=== PATIENT | male | born 1985 | race Caucasian/White ===

== ENCOUNTER 2024-05-01 08:27 | Emergency (ER) | payer MEDICAID, SELFPAY ==
[2024-05-01 08:32] VITALS: PULSE 94; RESP 18; O2SAT 98
[2024-05-01 08:36] VITALS: BP 125/83; PULSE 78; RESP 20; TEMP 36.8; O2SAT 98
[2024-05-01] MEDS: DIAZEPAM 5 MG TABLET 10 MG PO ×2 (08:45→10:26)
[2024-05-01] MEDS: KETOROLAC INJ 30 MG/ML VIAL IM ×2 (08:48→10:26)
[2024-05-01] MEDS: MORPHINE SULF INJ 10 MG/ML VIAL 4 MG IM (08:48)
--- NOTE | 2024-05-01 11:43 | PD.EDBACK ---
ED Back Injury Pain RME/HPI General Chief Complaint: Back Pain/Injury Stated Complaint: BACK PAIN Time Seen by Provider: 05/01/24 08:28 Arrival date/time: 05/01/24 08:27 38-year-old male presents emergency department via EMS patient reports that he attempted to lift up a bucket today and when he did so he had pain immediately in his lower back patient reports no fever no nausea vomiting no saddle anesthesia or loss of bowel or bladder patient reports no fall Limitations: no limitations Related Data Previous Rx's ?Medication ?Instructions ?Recorded cyclobenzaprine 10 mg tablet 10 mg PO TID PRN muscle spasm 10 05/01/24 days #30 tab-caps ibuprofen 800 mg tablet 800 mg PO TID PRN pain #30 tabs 05/01/24 Allergies Allergy/AdvReac Type Severity Reaction Status Date / Time No Known Allergies Allergy Verified 05/01/24 08:30 Review of Systems Review of Systems Systems Reviewed: All systems reviewed, normal except as documented Constitutional Constitutional: Reports system reviewed and no additional complaints, except as documented, Denies fever(s) and Denies headache(s) Eyes Eyes: Reports system reviewed and no additional complaints, except as documented and Denies blurry vision ENT Ears, Nose, Mouth, and Throat: Reports system reviewed and no additional complaints, except as documented, Denies headache(s), Denies nasal congestion and Denies nasal discharge Cardiovascular Cardiovascular: Reports system reviewed and no additional complaints, except as documented, Denies chest pain and Denies dyspnea Respiratory Respiratory: Reports system reviewed and no additional complaints, except as documented, Denies chest congestion, Denies cough and Denies dyspnea Gastrointestinal Gastrointestinal: Reports system reviewed and no additional complaints, except as documented and Denies abdominal pain Musculoskeletal Musculoskeletal: Reports system reviewed and no additional complaints, except as documented, Reports back pain, Denies deformity, Denies joint swelling, Denies numbness, Reports stiffness and Denies tingling Integumentary/Breasts Skin/Breast: Reports system reviewed and no additional complaints, except as documented and Denies rash Neurologic Neurologic: Reports system reviewed and no additional complaints, except as documented, Reports as per HPI, Denies headache(s), Denies numbness and Denies tingling Past Medical History Social History SMOKING STATUS: Light (< 1 pack/day) ED Exam General Limitations: Present no limitations General appearance: Present alert and in no apparent distress Head Head exam: Present atraumatic Eye Eye exam: Present normal appearance, PERRL and EOMI ENT ENT exam: Present normal exam, normal oropharynx and mucous membranes moist Neck Neck exam: Present normal inspection, full ROM and trachea midline Chest Chest inspection: Present normal inspection and symmetric chest wall rise Respiratory Respiratory exam: Present normal lung sounds bilaterally Cardiovascular Cardiovascular exam: Present regular rate, normal rhythm and normal heart sounds Abdominal Exam Abdominal exam: Present soft and normal bowel sounds Extremities Exam Extremities exam: Present normal inspection and full ROM Back Exam Back exam: Present normal inspection, full ROM, muscle spasm and paraspinal tenderness Neurological Exam Neurological exam: Present alert, oriented X3, CN II-XII intact, normal gait and reflexes normal; Absent motor sensory deficit Psychiatric Psychiatric exam: Present normal affect and normal mood Skin Skin exam: Present warm, dry, intact and normal color Course Quality Measures none Orders Category Date Time Status Diazepam [Valium] Med 05/01/24 08:28 Discontinued 10 mg PO X1 ONE Diazepam [Valium] Med 05/01/24 10:13 Discontinued 10 mg PO X1 ONE Ketorolac Inj [Toradol Inj] Med 05/01/24 08:29 Discontinued 30 mg IM X1 ONE Ketorolac Inj [Toradol Inj] Med 05/01/24 10:13 Discontinued 30 mg IM X1 ONE Morphine Inj Med 05/01/24 08:28 Discontinued 4 mg IM X1 ONE Vital Signs Vital signs: Vital Signs Temperature 98.2 F 05/01/24 08:36 Pulse Rate 78 05/01/24 08:36 Respiratory Rate 20 05/01/24 08:36 Blood Pressure 125/83 05/01/24 08:36 Pulse Oximetry (%) 98 05/01/24 08:36 Oxygen Delivery Method Room Air 05/01/24 08:36 O2 saturation 98% room air within normal limits Back Pain / Injury MDM Narrative MDM Narrative:: 38-year-old male presents emergency department via EMS patient reports that he attempted to lift up a bucket today and when he did so he had pain immediately in his lower back patient reports no fever no nausea vomiting no saddle anesthesia or loss of bowel or bladder patient reports no fall On exam patient has muscle spasm lower back pain with movement Patient given morphine Toradol x 2 as well as Valium x 2 Time reevaluation patient can walk with a steady gait patient reports symptoms have improved Patient discharged home in no distress to follow-up with primary care doctor in the next 24 to 48 hours and for any worsening symptoms to return to the ER immediately Patient data External records reviewed:: [facility] previous records Clinical information provided by:: patient Social determinants that could affect healthcare access:: alcohol use Patient has the following chronic illnesses:: Alcohol abuse How is presenting disease/condition affected by chronic disease/condition?: uneffected by Evaluation data The following diagnostics were reviewed and interpreted by me:: other (specify) (N/A) Lab and/or radiology exams considered but not ordered:: Consider not ordered Interpretation Summary: N/A Medications / Prescriptions Medications or Prescriptions considered but not ordered:: Given Medication administrations:: Medication Administration History Discontinued Medications Diazepam (Diazepam 5 Mg Tablet) 10 mg PO X1 ONE Stop: 05/01/24 08:29 Last Admin: 05/01/24 08:45 Dose: 10 mg Documented By: CASTRO Diazepam (Diazepam 5 Mg Tablet) 10 mg PO X1 ONE Stop: 05/01/24 10:14 Last Admin: 05/01/24 10:26 Dose: 10 mg Documented By: LASHELL Ketorolac Tromethamine (Ketorolac Inj 30 Mg/Ml Vial) 30 mg IM X1 ONE Stop: 05/01/24 08:30 Last Admin: 05/01/24 08:48 Dose: 30 mg Documented By: CASTRO Ketorolac Tromethamine (Ketorolac Inj 30 Mg/Ml Vial) 30 mg IM X1 ONE Stop: 05/01/24 10:14 Last Admin: 05/01/24 10:26 Dose: 30 mg Documented By: LASHELL Morphine Sulfate (Morphine Sulf Inj 10 Mg/Ml Vial) 4 mg IM X1 ONE Stop: 05/01/24 08:29 Last Admin: 05/01/24 08:48 Dose: 4 mg Documented By: CASTRO Given Consultations Consultation(s) initiated? (list below): No Diagnosis Differential diagnosis back pain/injury: lumbar radiculopathy, sciatica and strain of lumbar region Most likely diagnosis given after review of the tests above:: Back pain Admission Indicated Admission indicated?: not indicated Admission Request Was there a request for admission?: No Disposition Plan Disposition Plan: Discharge Discharge Attestation Discharge Attestation: The patient and all family members were given an opportunity to ask questions and understood the discharge instructions. Discharge instructions specifically effects, indications for sooner follow up or return to the emergency department, and the expected course of current diagnosis. Patient condition: Stable Discharge Plan Plan Patient Disposition: HOME (Self Care) Disposition Comment: Stable Prescriptions/Referrals Prescriptions/Med Rec: New cyclobenzaprine 10 mg tablet 10 mg PO TID PRN (Reason: muscle spasm) 10 Days Qty: 30 0RF ibuprofen 800 mg tablet 800 mg PO TID PRN (Reason: pain) Qty: 30 0RF Referrals: Arjun Choe MD [Primary Care Provider] - 05/02/24 Problem List Clinical Impression: Lumbar radiculopathy, Strain of lumbar region Patient/Caregiver Discharge Instructions Education Materials: Back Safety: Lifting Additional Instructions: Please follow up with your primary care doctor in the next 24-48hrs for any worsening symptoms return here immediately Print Language: Bengali Stand Alone Forms: Alessandra Award Info., Work/School Release, Patient Portal Info Letter PA/[employer] SET UP [employer] Supervising Physician BETTYE/[facility] Supervising Physician: dr [email or web address]
== END 2024-05-01 12:07 | disposition home or self-care (01) ==
PROVIDERS: Emergency Provider Emergency Medicine; PCP Family Medicine
DX: S39.012A Strain of muscle, fascia and tendon of lower back, initial encounter (principal); M54.16 Radiculopathy, lumbar region; X58.XXXA Exposure to other specified factors, initial encounter
CPT/HCPCS: 96372; 99284; J1885; J2270; A9270